=== PATIENT | male | born 1985 | race Caucasian/White ===

== ENCOUNTER 2017-11-04 00:59 | Emergency (ER) | payer OTHER ==
[2017-11-04 04:11] LABS: ABS Basophils 0.1 10^3/ul (0-0.2); ABS Eosinophils 0.1 10^3/ul (0-0.6); ABS Lymphocytes 2.5 10^3/ul (1.0-4.8); ABS Monocytes 0.9 10^3/ul (0-0.8); ABS Neutrophils 7.7 10^3/ul (1.5-7.7); ABS Nucleated RBC 0 10^3/ul; Eosinophil % 0.7 % (0-6); Hematocrit 46 % (42-52); Hemoglobin 15.8 g/dl (14.0-18.0); Lymphocyte % 22.3 % (25-47); Mean Corpuscular HGB Conc 35 g/dl (31-36); Mean Corpuscular Hemoglobin 31 pg (27-31); Mean Corpuscular Volume 89 fL (80-94); Mean Platelet Volume 7 um3 (7.4-10.4); Nucleated Red Blood Cells % 0.1; Platelet Count 281 10^3/ul (150-450); Red Blood Count 5.17 10^6/ul (4.0-5.4); Red Cell Distribution Width 13 % (10.5-15); White Blood Count 11.3 10^3/ul (3.5-10.8)
[2017-11-04 04:25] LABS: EGFR Non-African American 108.1 (>60)
[2017-11-04] MEDS ORDERED: clonazePAM TAB(*) 0.5 MG PO ONE (06:00)
[2017-11-04] MEDS ORDERED: clonazePAM TAB(*) 1 MG PO ONE (06:00)
[2017-11-04 11:47] VITALS: BP 127/75
--- NOTE | 2017-11-04 12:11 | CONSULT ---
Consult Consult: Mr. Lopez presented on a previous shift and was medically cleared. He had a MHE today and they have scheduled him for a sleep study and are recommending D/C. He is D/C'd in stable condition with a diagnosis of Sleep Disorder NOS.
== END 2017-11-04 13:46 ==
LOC: ED 00:59
DX: G47.9 Sleep disorder, unspecified (principal)
CPT/HCPCS: 36415; 80053; 80307; 80320; 84443; 85025; 99283; A9270-GY; G0480

== ENCOUNTER → 2018-07-27 08:25 | Day surgery (SDC) | payer OTHER ==
[~2018-07-27 08:25] MED LIST: Acetaminophen TAB* 325 MG PO PRN; Buffered Lidocaine 0.9% SYRIN* 5 ML/SYR SYRINGE INTRADERM ONE; Dexamethasone IV* 4 MG/ML 1 ML (4 MG) IV SLOW PU ONE; Dexamethasone IV* 4 MG/ML 1 ML (4 MG) ONE; DiMENhydriNATE IV* 50 MG/ML VIAL IV PUSH PRN; Famotidine IV* 10 MG/ML 2 ML (20 mg) IV ONE; Famotidine IV* 10 MG/ML 2 ML (20 mg) ONE; Gelatin ADSORBABLE (OPHTH)* OPHTH.FILM ONE; Gelfoam 12-7 ADSORBABL SPONGE* 1 EA SPONGE ONE; HYDROcodone/ACETAMIN 5-325 MG* 1 TAB PO PRN; Ibuprofen TAB* 600 MG PO PRN; Lidocaine 2% EPI 1:200000 MPF*10-20 ML VIAL ONE; Lidocaine 2% PF * 5 ML VIAL ONE; Midazolam* 1 MG/ML 5 ML VIAL (5 MG) ONE; Naloxone* 0.4 MG/ML 1 ML VIAL IV PRN; Ondansetron INJ* 2 MG/ML VIAL IV PRN; Ondansetron INJ* 2 MG/ML VIAL ONE; Oxymetazoline 0.05% NASAL SPR* 15 ML BTL ONE; Propofol* 10 MG/ML 20 ML BTL IV PUSH ONE; Rocuronium* 10 MG/ML VIAL ONE; Triamcinolone Acetonide* 40 MG/ML 1 ML VIAL ONE; fentaNYL* 50 MCG/ML 2 ML VIAL (100 MCG VIAL) IV PRN; fentaNYL* 50 MCG/ML 5 ML VIAL (250 MCG VIAL) ONE
[2018-07-27 13:41] VITALS: BP 142/95
--- NOTE | 2018-07-28 03:33 | OP ---
DATE OF OPERATION: 07/27/18 - [facility] DATE OF : 87 SURGEON: Delmar Justin MD PRE-OP DIAGNOSIS: Chronic sinusitis. POST-OP DIAGNOSIS: Chronic sinusitis. OPERATIVE PROCEDURE: Bilateral video endoscopic maxillary antrostomy, bilateral anterior ethmoidectomy, and bilateral mal bullosa resection. INDICATIONS: This is a 33-year-old gentleman with significant symptoms suggestive of sinusitis, failing medical management, elected for surgical management. DESCRIPTION OF PROCEDURE: The patient was taken to the operating room. General anesthesia was given. The patient intubated with LMA. Nose was decongested with Afrin placed pledgets. Subsequently, 2% lidocaine with epinephrine was then infiltrated into the mucosa of the turbinates on both sides , uncinate region and the ethmoidal bulla. We turned our attention to the left side. The uncinate process was peeled away anteriorly. Microshaver was used to completely remove the uncinate process and the antrostomy was enlarged and accessory ostium was identified and communicated with the natural ostium to enlarge both together. We turned our attention to the mal bullosa. Microshaver was used to remove the lateral surface of the middle turbinate. However, the main structure of the turbinate was left in place. We turned our attention to the ethmoidal bulla resecting out the front piece of the ethmoidal bulla posterior and then entered the nasofrontal duct superiorly and towards the lamina papyracea laterally. The area was packed with Gelfilm and Gelfoam as a spacer between the middle turbinate and lateral nasal wall. We turned our attention to the right side. Here again, the similar process was carried out removing the uncinate process and shaving it away enlarging the antrum. There was no accessory ostia. The antrum was copiously irrigated. We then turned our attention to the ethmoidal bulla, resecting out the bulla, and then coursing laterally towards the lamina papyracea and then superiorly into the nasofrontal duct removing as many of the diseased cells that we had found. Piece of mal bullosa was also noted in the side. Small incision was made and microshaver was introduced into it removing some of the lateral wall. The area was then packed with Gelfilm/Gelfoam, which was soaked in Kenalog. The patient was then awakened and sent to recovery room in stable condition. Instrument and sponge counts were correct. Blood loss, minimal. [id number]/[facility] #: [id number] MTDD
== END | disposition home or self-care (01) ==
LOC: OR 08:25
PROVIDERS: ATTEND Otolaryngology
DX: J32.8 Other chronic sinusitis (principal); F41.8 Other specified anxiety disorders; N32.81 Overactive bladder; E29.1 Testicular hypofunction
CPT/HCPCS: A9270-GY; J1100; J2250; J2405; J2704; J3010; J3301

== ENCOUNTER 2018-07-28 02:33 | Emergency (ER) | payer OTHER ==
[2018-07-28] MEDS ORDERED: LORazepam INJ* 2 MG/ML 1 ML VIAL IM ONE (03:01)
--- NOTE | 2018-07-28 03:16 | ED ---
Psychiatric Complaint - HPI Summary HPI Summary: This is scribe Kalpesh Lane documenting for attending Dr. Zeina Mixon MD. This patient is a 33 year old M [facility] accompanied by a woman with a chief complaint of anxiety accompanied by panic attacks since 14:00. Pt has had intermittent attacks all day and took Xanax (.25) at 19:00 and 23:00. Patient reports difficulty sleeping and hyperventilation. Pt had a syncopal episode in the ED upon arrival. Pt reports that he started getting panic attacks a year ago and has had 40-50 since then. Pt reports that his attacks wake him from sleep and make it extremely difficult to stay asleep. Pt has not been sleeping for days. Pt recently was getting sinusitis repeatedly, his medications werent working, and it made his panic attacks worse. Pt had surgery on 07/27 and is here now for the resulting panic attacks. PMHx panic attacks. I, Dr. Mixon, personally performed the services described in this documentation as scribed in my presence and it is both accurate and complete. - History Of Current Complaint Chief Complaint: EDGeneral Time Seen by Provider: 07/28/18 02:53 Hx Obtained From: Patient Onset/Duration: Sudden Onset, Lasting Hours Timing: Intermittent Episode Lasting - minutes Severity Initially: Severe Severity Currently: Mild Character: Anxious Aggravating Factor(s): Other - recent surgery Related History: Positive For: Prior Psychiatric Issues - panic attacks - Allergies/Home Medications Allergies/Adverse Reactions: Allergies Allergy/AdvReac Type Severity Reaction Status Date / Time Sulfa (Sulfonamide Allergy Unknown Unknown Verified 07/28/18 02:42 Antibiotics) Reaction Details PMH/Surg Hx/FS Hx/Imm Hx Endocrine/Hematology History: Denies: Hx Diabetes Musculoskeletal History: Reports: Hx Tendonitis - right wrist wearing a stabilizer Sensory History: Reports: Hx Contacts or Glasses - glasses Denies: Hx Hearing Aid Opthamlomology History: Reports: Hx Contacts or Glasses - glasses Neurological History: Reports: Hx Headaches - same as migraines, Hx Migraine Psychiatric History: Reports: Hx Anxiety, Hx Depression, Hx Panic Disorder - Cancer History Hx Chemotherapy: No - Surgical History Surgery Procedure, Year, and Place: right eye. sinus including deviatied septum Hx Anesthesia Reactions: No - Immunization History Date of Influenza Vaccine: 06/2017 Infectious Disease History: No Infectious Disease History: Denies: Traveled Outside the [place] in Last 30 Days - Family History Known Family History: Positive: Other - panic attacks - Social History Alcohol Use: Rare Substance Use Type: Reports: None Smoking Status (MU): Never Smoked Tobacco Review of Systems Positive: Other - hyperventilation Positive: Anxious All Other Systems Reviewed And Are Negative: Yes Physical Exam - Summary Physical Exam Summary: GENERAL: Patient is a well-developed and nourished male who is lying comfortable in the stretcher. Patient is not in any acute respiratory distress. Patient seems anxious and is hyperventilating. Pt has a major history of panic attacks. HEAD AND FACE: No signs of trauma. No ecchymosis, hematomas or skull depressions. No sinus tenderness. EYES: PERRLA, EOMI x 2, No injected conjunctiva, no nystagmus. EARS: Hearing grossly intact. Ear canals and tympanic membranes are within normal limits. Bilateral nasal packing from recent surgery is present. MOUTH: Oropharynx within normal limits. NECK: Supple, trachea is midline, no adenopathy, no JVD, no carotid bruit, no c- spine tenderness, neck with full ROM. CHEST: Symmetric, no tenderness at palpation LUNGS: Clear to auscultation bilaterally. No wheezing or crackles. CVS: Regular rate and rhythm, S1 and S2 present, no murmurs or gallops appreciated. ABDOMEN: Soft, non-tender. No signs of distention. No rebound no guarding, and no masses palpated. Bowel sounds are normal. EXTREMITIES: FROM in all major joints, no edema, no cyanosis or clubbing. NEURO: Alert and oriented x 3. No acute neurological deficits. Speech is normal and follows commands. SKIN: Dry and warm Triage Information Reviewed: Yes Vital Signs On Initial Exam: Initial Vitals Temp Pulse Resp BP Pulse Ox 99.0 F 122 20 139/76 98 07/28/18 02:35 07/28/18 02:35 07/28/18 02:35 07/28/18 02:35 07/28/18 02:35 Vital Signs Reviewed: Yes Diagnostics - Vital Signs Vital Signs Temp Pulse Resp BP Pulse Ox 07/28/18 02:35 99.0 F 122 20 139/76 98 - Laboratory Lab Statement: Any lab studies that have been ordered have been reviewed, and results considered in the medical decision making process. Re-Evaluation - Re-Evaluation First Eval Re-Evaluation Time: 05:14 Change: Improved Comment: Patient has not been able to sleep for days but was able to fall asleep in the ED. Patient will be discharged home. Course/Dx - Course Course Of Treatment: This patient is a 33 year old M presenting to [facility] accompanied by a woman with a chief complaint of anxiety accompanied by panic attacks since 14:00. Pt has had intermittent attacks all day and took Xanax (.25 ) at 19:00 and 23:00. Patient reports difficulty sleeping and hyperventilation. Pt had a syncopal episode in the ED upon arrival. Pt reports that he started getting panic attacks a year ago and has had 40-50 since then. Pt reports that his attacks wake him from sleep and make it extremely difficult to stay asleep. Pt recently was getting sinusitis repeatedly, his medications werent working, and it made his panic attacks worse. Pt had surgery on 07/27 and is here now for the resulting panic attacks. PMHx panic attacks. In the ED course the patient was given Lorazepam. Patient will be discharged with prescription for Ativan and follow up from PCP. The patient is agreeable with this plan. - Differential Dx/Clinical Impression Provider Diagnosis: Anxiety, Insomnia Discharge - Sign-Out/Discharge Documenting (check all that apply): Patient Departure - discharge - Discharge Plan Condition: Stable Disposition: HOME Prescriptions: LORazepam TAB(*) [Ativan 1 MG TAB (*)] 1 mg PO BID PRN #14 tab MDD 2 PRN Reason: Anxiety Patient Education Materials: Anxiety (ED), Insomnia (ED) Referrals: Benitez Bell MD [Primary Care Provider] - 2 Days Additional Instructions: RETURN TO THE EMERGENCY DEPARTMENT FOR CHANGING OR WORSENING SYMPTOMS. FOLLOW UP WITH PCP IN 1-2 DAYS. - Attestation Statements Document Initiated by Scribe: Yes Documenting Scribe: Kalpesh Lane Provider For Whom Scribe is Documenting (Include Credential): Zeina Mixon MD Scribe Attestation: Kalpesh Lund, scribed for Zeina Mixon MD on 07/28/18 at 0515.
--- OUTSIDE RECORDS SUMMARY | 2018-07-28 03:33 | XMS REPORT | Continuity of Care Document ---
:1985 External Reference #:[id number] Author Name Delmar Justin MD Address [address] [place] [address] Care Team Providers Name Role Phone Maria Fernanda Ahn M.D. Care Team Information Model Making Supervisor Unavailable [facility]ly [facility] Primary Care Physician Unavailable Payers Type Date Identification Numbers Payment Provider Subscriber Policy Number: [id number] [facility] Claims Admin Darrell Lopez Group Name: Student Insurance [address] PayID: [id number] [place] [address] Advance Directives Description No Information Available Problems Date Description Provider Status Onset: 11/11/2017 Chronic rhinitis Delmar Justin MD Active Onset: 11/11/2017 Chronic sinusitis Delmar Justin MD Active Family History Date Family Member(s) Problem(s) Comments General Hearing Loss General Heart Disease General Migraine Mother Hearing Loss Mother Heart Disease Mother Migraine First Brother Migraine Second Brother Migraine Social History Type Date Description Comments Sex Unknown Occupation Student Occupation [employer] Tobacco Use Start: Unknown Never Smoked Cigarettes Tobacco Use Start: Unknown Never Smoked Cigars Tobacco Use Start: Unknown Never Smoked A Pipe Smoking Status Reviewed: 11/11/17 Never Smoked A Pipe Smokeless Tobacco Never Used Smokeless Tobacco ETOH Use Currently rarely consumes alcohol Allergies, Adverse Reactions, Alerts Date Description Reaction Status Severity Comments 11/11/2017 sulfa Active Medications Medication Date Status Form Strength Qnty SIG Indications Ordering Provider Azelastine / Active Solution 0.15% Pieretti, HCL (Nasal) 0000 Maria Fernanda Wolfe Mometasone / Active Suspension 50mcg/Act Unknown Furoate 0000 Novarel / Active Solution [id number] Inject 1ML Unknown 0000 Rec Intramuscular Three Times A Week Alprazolam // Active Tablets 0.25mg Unknown 0000 Trospium 00/ Hx Caps ER 60mg Unknown Chloride ER 0000 - 24HR 2017 Amoxicillin/ / Hx Tablets 875-125mg Pieretti, Clavulanate 0000 - Maria Fernanda Potassium 05/29/ M.D. 2018 Immunizations Description No Information Available Vital Signs Date Vital Result Comment 07/22/2018 11:27am BP Systolic 135 mmHg BP Diastolic 91 mmHg Heart Rate 83 /min Respiratory Rate 17 /min Weight 226.00 lb Weight 102.514 kg Height 73 inches 6'1" Height in cm's 185.4 cm BMI (Body Mass Index) 29.8 kg/m2 05/30/2018 8:55am Weight 226.00 lb Weight 102.514 kg Height 73 inches 6'1" Height in cm's 185.4 cm BMI (Body Mass Index) 29.8 kg/m2 11/22/2017 8:42am BP Systolic 136 mmHg BP Diastolic 90 mmHg Heart Rate 92 /min Respiratory Rate 17 /min Weight 220.00 lb Weight 99.792 kg Height 73 inches 6'1" Height in cm's 185.4 cm BMI (Body Mass Index) 29.0 kg/m2 11/11/2017 9:18am BP Systolic 153 mmHg BP Diastolic 93 mmHg Heart Rate 91 /min Respiratory Rate 17 /min Weight 220.00 lb Weight 99.792 kg Height 73 inches 6'1" Height in cm's 185.4 cm BMI (Body Mass Index) 29.0 kg/m2 Results Description No Information Available Procedures Description No Information Available Encounters Type Date Location Provider Dx Diagnosis Office Visit 07/22/2018 Edvin,Anselmo Hernandez.Brian Chronic sinusitis, 11:00a 10/25/07 unspecified J31.0 Chronic rhinitis Office Visit 05/30/2018 Edvin,Joel Hernandez Chronic 8:30a 10/25/07 sinusitis, unspecified J31.0 Chronic rhinitis Office Visit 11/22/2017 8:30a [place],After 10/25/07 Nicky Chow.0 Chronic rhinitis J32.9 Chronic sinusitis, unspecified Office Visit 11/11/2017 9:00a [place],After 10/25/07 Delmar Justin, J31.0 Chronic MD rhinitis J32.9 Chronic sinusitis, unspecified Plan of Treatment Future Appointment(s):08/08/2018 8:30 am - Delmar Justin MD at [place],After 7:45 am - Delmar Justin MD at [facility] O 07/22/2018 - Delmar Justin MDJ32.9 Chronic sinusitis, unspecifiedComments:Options of treatment including endoscopic sinus surgery was discussed. Medical alternatives were also discussed Risks and complications of sinus surgery including risks to the orbit, orbital structurespossibility of blindness was discussed, Other complications include recurrence of disease, scar formation with difficulty breathing through the nose and nasal difficulty with bleeding were also outlined. he will telephone us back to schedule for bilateral video endoscopic maxillary antrostomy and anterior ethmoidectomy [id number] Chronic rhinitis
[2018-07-28] MEDS ORDERED: LORazepam TAB(*) 1 MG PO ONE (05:13)
[2018-07-28 06:30] VITALS: BP 131/85
== END 2018-07-28 06:24 | disposition home or self-care (01) ==
LOC: ED 02:33
DX: R06.4 Hyperventilation (principal); F41.9 Anxiety disorder, unspecified; G47.00 Insomnia, unspecified; R55 Syncope and collapse
CPT/HCPCS: 96372; 99282; A9270-GY; J2060